=== PATIENT | male | born 1965 | race Caucasian/White ===

== ENCOUNTER → 2019-01-25 09:55 | Outpatient (CLI) | payer MEDICAID, SELFPAY ==
[2018-12-28 16:04] VITALS: BMI 33.1
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
== END ==
PROVIDERS: Family Provider Family Medicine; PCP Family Medicine; Referring Provider Internal Medicine Cardiovascular Disease; Visit Provider Internal Medicine Cardiovascular Disease
DX: R07.9 Chest pain, unspecified (principal); I21.4 Non-ST elevation (NSTEMI) myocardial infarction; I10 Essential (primary) hypertension
CPT/HCPCS: 93306; Q9957; A4216; C8929

== ENCOUNTER 2019-11-20 14:08 | Emergency (ER) | payer MEDICAID, SELFPAY ==
[2018-12-28 16:04] VITALS: BMI 33.1
[2019-11-20 14:11] VITALS: BP 155/94; PULSE 82; RESP 18; TEMP 37.1; O2SAT 97; BMI 34.6
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
[2019-11-20] MEDS: Ibuprofen 600 MG Tablet PO (14:33)
[2019-11-20] MEDS: oxyCODONE 5 MG Tablet PO (14:33)
== END 2019-11-20 15:18 | disposition home or self-care (01) ==
PROVIDERS: Emergency Provider Emergency Medicine; PCP Family Medicine
DX: S50.312A Abrasion of left elbow, initial encounter (principal); V43.62XA Car passenger injured in collision with other type car in traffic accident, initial encounter; Y92.410 Unspecified street and highway as the place of occurrence of the external cause; Z80.3 Family history of malignant neoplasm of breast; Z82.49 Family history of ischemic heart disease and other diseases of the circulatory system
CPT/HCPCS: 73130; 99285